=== PATIENT | male | born 1950 | race Caucasian/White ===

== ENCOUNTER 2017-04-03 14:50 | Emergency (ER) | payer BC ==
[~2017-04-03] VITALS: Ht 177.8 cm; Wt 92.1 kg
[2017-04-03 14:52] VITALS: TEMP 36.7; Ht 177.8 cm; Wt 92.1 kg
[2017-04-03] MEDS ORDERED: MoRPHine SULFATE 4 MG/ML 1 ML CARP\\VIAL IV STA (15:05)
[2017-04-03] MEDS ORDERED: XYLOCAINE 1%/SOD BICARB 20 ML VIAL INFIL STA (15:05)
[2017-04-03] MEDS ORDERED: BUPIVACAINE 0.5 % 5 MG/1 ML MPF 30ML VIAL INFIL STA (15:05)
[2017-04-03] MEDS ORDERED: CEFAZOLIN IV 1,000 MG in DEXTROSE 5% 50ML 50 ML IV STA (15:05)
--- NOTE | 2017-04-03 15:11 | EMERGENCY ROOM VISIT NOTE ---
ED Visit Note First contact with patient: 14:58 Chief Complaint: "cut end of left middle finger". History of Present Illness: This patient is a 66 who presents to the Emergency Department female for evaluation of their left third digit laceration. 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 They report a moderate amount of bleeding initially. They deny any numbness or tingling into the distal extremity. They report no decreased range of motion of the affected digit. Patient rates his current discomfort as a 8/10. Patient' s Tetanus status is believed to be currently up-to-date. Medications: as noted below Allergies: none PMH: no pertinent SHx: Patient is retired and lives locally. ROS: All pertinent positive and negative review of systems are appropriately documented in the History of Present Illness. Physical Exam: VITAL SIGNS - Vital signs and nursing notes were reviewed. GENERAL -66 year old male appearing his stated age who is in no acute distress. Communicates well with provider and answers questions appropriately. SKIN -there is complete avulsion of the bone from the DIP distally on the left third digit. The ventral fingerpad region is intact. Large amount of skin is missing. The edges gape apart with traction. No foreign bodies appreciated. There is minimal active bleeding noted. MUSCULOSKELETAL - Laceration as described above. +5/5 strength appreciated of the affected digit. Full range of motion of the affected digit at the PIP, DIP is absent. NEUROLOGIC - Spinothalamic tract was found to be intact with ability to discriminate sharp versus dull sensation. No sensory defects of the dorsal column were appreciated utilizing light touch for evaluation. VASCULAR - Capillary refill was brisk. In the lateral aspects of the intact finger. IMAGING: LEFT MIDDLE FINGER 3 VIEWS HISTORY: Left third digit laceration with bone avulsion COMPARISON: None. FINDINGS: The distal phalanx of the third finger is almost completely absent a small fragment of the base remaining. This is consistent with amputation. The fragment of the distal phalanx base is displaced along the undersurface of the head of the middle phalanx. There is deformity/laceration within the distal middle finger. No radiopaque foreign bodies. 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 There is a large laceration/deformity involving the distal soft tissues of the middle finger. Electronically signed by: Bigg Soni M.D. 04/03/2017 3:53 PM Dictated Date/Time: 04/03/2017 3:50 PM ED Course: Patient was seen and evaluated by myself. Risks and benefits of performing primary wound closure versus no repair were discussed with the patient who verbalizes understanding. Verbal consent was obtained prior to performing the procedure. 4 cc of 50/50 ratio 1% buffered lidocaine was used to perform a digital block of the left third digit. The wound was cleansed and prepped in the typical sterile fashion utilizing normal saline and Betadine. The wound was sterilely draped. Once proper anesthetization was established, the wound was further examined and demonstrated open bone fragment and avulsion. I obtained radiographs with results as above. I consult orthopedics, and spoke with Dr. Calderon, of [facility] [place] at 4:28 PM. We discussed the case, and he recommended Adaptic overlying the region if it could not be tacked back down, AlumaFoam splint, have the patient call the office at 8:30 AM tomorrow morning, and have him nothing by mouth after midnight as well as antibiotics. This was performed. Upon inspection of the wound after thorough irrigation with Betadine and saline, I did have the attending physician, Dr. Brooks also examine the wound. It was apparent that there was a small portion of the nailbed at the distal region which was in tiny pieces. Decision was made to extract/excise this so there is better fit with the skin flap tacked back covering the bone. I spoke with Dr. Calderon again, to verify he was okay with this plan. He agreed. Attention was then turned to that region, and was excised with small scissors. His was only the distal 2 mm of the skin which were not viable. I then gently cleanse the region, thoroughly irrigated the region, and then tacked the skin back in a flap-like nature covering the bone. I reviewed this time is appropriate, and the patient is to follow-up tomorrow in the surgery Center with [facility]. The wound was closed using 7 simple, 5-0 nylon sutures with the wound edges being well approximated. Patient tolerated the procedure well. No complications were met. The wound was cleansed and dressed with a Bacitracin dressing. A metal splint was applied to the finger for comfort. Prescription for oxycodone immediate release as well as Keflex were provided. He was given 1 g of Ancef here as well as morphine for his pain. Patient educated on worrisome symptoms for return visit to the Emergency Department. Patient discharged to home in good condition. In the evaluation and treatment of this patient, the following differential diagnoses were considered: Finger Fracture, Finger Dislocation, Finger Sprain, Finger Contusion, Jersey Finger, or Mallet Finger. Current/Historical Medications Scheduled Cephalexin Monohydrate (Keflex), 500 MG PO QID Scheduled PRN Oxycodone Ir (Roxicodone Ir), 1-2 TAB PO Q4H PRN for Pain Allergies Coded Allergies: No Known Allergies (Unverified , 04/03/17) Vital Signs Date Time Temp Pulse Resp B/P (MAP) Pulse Ox O2 Delivery O2 Flow Rate FiO2 04/03/17 18:07 70 16 169/98 96 04/03/17 16:06 67 16 166/94 94 Room Air 04/03/17 14:52 36.7 80 20 172/82 95 Room Air Medications Administered Medications (Trade) Dose Ordered Sig/Manpreet Route Start Time Stop Time Status Last Admin Dose Admin Morphine Sulfate (MoRPHine SULFATE INJ) 4 mg NOW STAT IV 04/03/17 15:05 04/03/17 15:07 DC 04/03/17 15:15 4 MG Lidocaine HCl (Buffered Lidocaine 1% Inj) 20 ml ONE STAT INFIL 04/03/17 15:05 04/03/17 15:07 DC 04/03/17 15:15 20 ML Bupivacaine HCl (Marcaine 0.5% MPF Inj) 30 ml NOW STAT INFIL 04/03/17 15:05 04/03/17 15:07 DC 04/03/17 15:15 30 ML Cefazolin Sodium 1000 mg/Syringe 5 ml @ 100 mls/hr 1530 ONCE IV 04/03/17 15:30 04/03/17 15:32 DC 04/03/17 15:50 100 MLS/HR Oxycodone HCl (Roxicodone Immediate Rel 5MG Home Pack) 1 homepack UD STAT PO 04/03/17 17:58 04/03/17 17:59 DC 04/03/17 18:06 1 HOMEPACK Cephalexin Monohydrate (Keflex 500MG Home Pack) 1 homepack NOW STAT PO 04/03/17 17:58 04/03/17 17:59 DC 04/03/17 18:06 1 HOMEPACK Departure Information Impression Primary Impression: Laceration Additional Impression: Fingertip avulsion Dispostion Home / Self-Care Condition GOOD Prescriptions Oxycodone Ir (Roxicodone Ir) 5 Mg Tab 1-2 TAB PO Q4H Y for Pain, #20 TAB For Initial Treatment Prov: Mani Darby PA-C 04/03/17 Cephalexin Monohydrate (Keflex) 500 Mg Cap 500 MG PO QID for 7 Days, #28 CAP Prov: Mani Darby PA-C 04/03/17 Referrals No Doctor, Assigned (PCP) Schuyler Calderon D.O. Patient Instructions [facility] Additional Instructions Discharge Instructions: Please call Dr. Calderon's office first thing tomorrow morning at 8:30 AM. Please inform them that he asked for you to be seen in their office that day as you were seen in the emergency department for a amputating a portion of your finger. Oxy IR for pain. No driving while on this. Keflex 500mg every 6 hours for 8 days to help prevent infection. please begin this tomorrow morning You have received 7 sutures on your third left digit. These sutures are NOT dissolvable and WILL need to be removed by a health care provider in 14 days. You can return to the Emergency Department or contact your Primary Care Provider to have the sutures removed. (I recommend allowing the orthopedic surgeon removing these) Please wear the splint for comfort until the sutures are removed. Proper wound care is essential for adequate wound healing and infection prevention. You can shower and clean the wound with soap and water. Do not scour over the wound, pat dry with a towel. Do not submerse the wound (i.e. bathe or dish wash) until the sutures have been removed. You can use an antibiotic ointment with a dressing over the wound for the next 3-4 days. After this time you may leave the wound dry and open to the air. If crust develops over the wound you can use a Q-tip to apply a 1:1 peroxide:water solution to clean the wound. Look for signs of infection of the wound including: increased pain, swelling, foul discharge, streaking, or increased temperature. If any of these are noticed you should return to the Emergency Department for further assessment and treatment. As with any laceration you may have received nerve damage to the surrounding tissues. This damage may or may not be permanent. You should keep the area covered with sunscreen for the first 6 months to 1 year when at risk for exposure to help minimize scarring. You can also use scar reducing creams or Vitamin E oil to help minimize scarring. For pain control, you can use the following [id number] medicine: - Regular strength (325mg/tab) Tylenol (acetaminophen) 2 tabs every 4-6 hours as needed. Do not exceed 12 tablets in a 24 hour period. Avoid taking more than 3 grams (3000 mg) of Tylenol per day. This includes any other sources of acetaminophen you may take on a regular basis. - Regular strength (200 mg/tab) Advil (ibuprofen) 1-2 tabs every 4-6 hours as needed. Do not exceed a dose of 3200 mg per day. Return to the emergency department if your symptoms worsen despite treatment course outlined above. Problem Qualifiers
[2017-04-03] MEDS ORDERED: CEFAZOLIN IV 1,000 MG in SYRINGE 0 ML IV ONE (15:30)
--- NOTE | 2017-04-03 15:54 | DIAGNOSTIC IMAGING REPORT ---
LEFT MIDDLE FINGER 3 VIEWS HISTORY: Left third digit laceration with bone avulsion COMPARISON: None. FINDINGS: The distal phalanx of the third finger is almost completely absent a small fragment of the base remaining. This is consistent with amputation. The fragment of the distal phalanx base is displaced along the undersurface of the head of the middle phalanx. There is deformity/laceration within the distal middle finger. No radiopaque foreign bodies. 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 There is a large laceration/deformity involving the distal soft tissues of the middle finger. Electronically signed by: Bigg Soni M.D. 04/03/2017 3:53 PM Dictated Date/Time: 04/03/2017 3:50 PM
--- NOTE | 2017-04-03 17:02 | EMERGENCY ROOM VISIT NOTE ---
ED Visit Note First contact with patient: 17:01 This Patient was discussed with the physician [employer] Work[employer], Mani Darby PA-C. The pertinent historical and physical exam findings were confirmed. I agree with the studies ordered and with the interpretations of these studies. I agree with the disposition and care plan.
[2017-04-03] MEDS ORDERED: OXYC1TAB3 PO (17:53)
[2017-04-03] MEDS ORDERED: CEPH500C PO (17:53)
[2017-04-03] MEDS ORDERED: OXYCODONE IR HOME PACK PO STA (17:58)
[2017-04-03] MEDS ORDERED: CEPHALEXIN 500MG HOME PACK 1 EA BTL PO STA (17:58)
[2017-04-03 18:07] VITALS: BP 169/98; PULSE 70; O2SAT 96
[2017-04-04] MEDS ORDERED: IBUP-103 PO (17:01)
== END 2017-04-03 18:08 | disposition home or self-care (01) ==
LOC: C.EDB 14:51 → C.EDD 18:08
DX: S61.313A Laceration without foreign body of left middle finger with damage to nail, initial encounter (principal); W45.8XXA Other foreign body or object entering through skin, initial encounter

== ENCOUNTER → 2017-04-05 | Day surgery (SDC) | payer BC ==
[2017-04-04 17:01] VITALS: BMI 27.0
[~2017-04-05] VITALS: Ht 177.8 cm; Wt 86.5 kg
[~2017-04-05] MED LIST: CEFAZOLIN 1000MG IV PUSH 5 ML IV SCH; CEPH500C PO; IBUP-103 PO; LACTATED RINGER'S 1000ML 1,000 ML IV SCH; OXYC1TAB3 PO
--- NOTE | 2017-04-05 00:21 | HISTORY & PHYSICAL EXAMINATION ---
DATE OF ADMISSION: 04/05/2017 SUBJECTIVE AND CHIEF COMPLAINT: Left hand pain. 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 He went to the Emergency Room where x-rays were performed and he was noted to have complete amputation of the distal phalanx as well as partial amputation of the middle phalanx; however, the fingertip pad was kept in place. At that time, the wound was irrigated and it was closed lightly over top of the distal aspect of the finger. He was referred to [facility] where he was evaluated and he is now being set up for revision of the amputation. PAST MEDICAL HISTORY: None. SOCIAL HISTORY: The patient denies alcohol and tobacco use. FAMILY HISTORY: Noncontributory. PAST SURGICAL HISTORY: None. ALLERGIES: None. CURRENT MEDICATIONS: None. OBJECTIVE PHYSICAL EXAMINATION: GENERAL: The patient is alert and oriented x3. He is in no acute distress. He is a well-dressed, well-nourished 66-year-old male whose affect is appropriate. CARDIOVASCULAR: Heart has a regular rhythm and rate without murmurs. LUNGS: Clear to auscultation bilateral. EXTREMITIES: His radial pulse is +2/4 in the left upper extremity. Cap refill is immediate. LYMPHATIC: There is no evidence of any swollen lymph nodes. MUSCULOSKELETAL: Upon inspection of the patient's left hand, he is noted to have partial amputation of the left middle finger. Sutures are intact over the surgical flap. There is tenderness noted at the distal aspect of the finger. Sensation is intact at the distal aspect of the finger. Any range of motion causes pain. Strength testing was not performed. X-RAY EXAMINATION: Multiple views of the left hand demonstrate complete amputation of the distal phalanx of the middle finger, left hand. There is partial amputation of the very distal aspect of the middle phalanx of the middle finger. There is also a bony body at the volar aspect of the most distal aspect of the middle phalanx of third finger. There is soft tissue deformity distally with the most volar aspect still intact. ASSESSMENT AND DIAGNOSES: Partial amputation, traumatic, left middle finger. PLAN: Above assessment was discussed with the patient. At this time, it was recommended the patient undergo a revision of amputation left middle finger. All potential risks, benefits, complications, alternatives and rehab have been discussed with the patient, and at this time, he wishes to proceed with the surgery as indicated and will be scheduled for the surgery on 04/05/2017.
[2017-04-05 14:24] VITALS: BP_SYST 76; PULSE 64; TEMP 36.7; O2SAT 96; Ht 177.8 cm; Wt 86.5 kg
[2017-04-05 14:35] LABS: HEMATOCRIT 47.1 % (42-52); MEAN CELL VOLUME 86.3 fL (80-100); MEAN CORPUSCULAR HEMOGLOBIN 29.1 pg (25-34); MEAN PLATELET VOLUME 9.3 fL (7.4-10.4); PLATELET COUNT 236 K/uL (130-400); RED BLOOD COUNT 5.46 M/uL (4.7-6.1); WHITE BLOOD COUNT 6.26 K/uL (4.8-10.8)
[2017-04-05 14:39] LABS: MEAN CORPUSCULAR HGB CONC 33.8 g/dl (32-36)
--- NOTE | 2017-04-05 18:26 | History & Physical Bridge Note ---
H&P Re-Evaluation Bridge Note: I have examined the patient, reviewed the History & Physical and in the interval since the performance of the History & Physical I have noted the following changes of clinical significance: Case cancelled. More urgent surgical cases will not allow for this patient to be cared for today as an add- on. Will make other arrangements for his care.
== END | disposition home or self-care (01) ==
LOC: C.OR 14:00
PROVIDERS: ATTEND Orthopaedic Surgery Sports Medicine
DX: M79.642 Pain in left hand (principal)

== ENCOUNTER 2024-04-22 16:41 | Observation (INO) ==
[2024-04-22] MEDS: OPTIRAY 320 125ml IV ONE (17:08)
--- NOTE | 2024-04-22 17:12 | Emergency Department Note ---
Impression & Plan Stroke-like symptoms, Elevated blood pressure reading ED Provider Note NAME: AGATHA HERNANDEZ AGE: 73 SEX: M : 1950 ARRIVES VIA: Walk-In INFORMANT: Patient, family at the bedside ED PROVIDER(S): Hema Helms MD CHIEF COMPLAINT: Headache, left-sided numbness MEDICAL DECISION MAKING: Patient presents due to concern for left-sided numbness and headache. IV was established and blood work was obtained. Code stroke was initiated but from return of the CAT scan the patient had resolution of symptoms. Patient with a nonfocal neurologic exam. I did speak with the radiologist reading the report is reported that the patient does have moderate stenosis of the right MCA.Patient's blood work shows a normal white count H&H and platelet count. The patient's kidney function is unremarkable. Patient CT head negative. Patient's CTA of the head does show multifocal stenoses of the right MCA M1 segment moderate in severity. Also moderate stenosis of the proximal right cervical ICA just distal to the carotid bifurcation secondary to atherosclerosis. Patient asymptomatic and thus did not speak with telestroke as the stenosis is not reported as greater than moderate i.e. severe. I did inform the patient of the findings. The patient was ordered full dose aspirin and 80 mg of atorvastatin. I did speak with the on-call hospitalist service and the patient was admitted by [facility]. Critical Care: I have personally spent 35 minutes of critical care time in direct management of this patient. This includes bedside care, interpretation of diagnostic studies, and testing, discussion with consultants, patient, and family members, and other require inpatient management activities. This 35 minutes is in excess of all separately billable procedures. Discussion w/ other healthcare providers: Dr. Herndon with radiology JORGE ALBERTO Dangelo Dr. inpatient medicine service Prior /Outside records reviewed: none Differential diagnosis: Infection, dehydration, metabolic abnormality, hypo/hyperglycemia, electrolyte imbalance, anemia, UTI, pneumonia, thyroid dysfunction among others were considered. Diagnostics, as interpreted by me: ECG: Normal sinus rhythm, rate of 80, normal intervals, left axis deviation, Q waves noted anteriorly. No ST elevations. Cardiac monitoring: An order was placed for continuous cardiac monitoring. The monitor shows a rate of 82 with sinus rhythm. Patient was placed on pulse oximetry Medical decision rules: None Imaging studies: I informally interpreted the patient's CT head does not show obvious ICH with formal report to follow. HPI: Patient presents due to concern for headache and left-sided numbness. The patient reportedly began having the symptoms while seated at a table around 3:45 PM. Patient did have some associated headache at that time. No falls or trauma. Patient was laying some brick outside earlier today. Patient states that he was drinking enough water. Patient states that he did have a headache prior to the symptoms. Patient denies any blood thinner use no LOC. The patient denies any focal weakness. Patient does not take any chronic medications. He denies any alcohol tobacco or drug use. Patient denies any slurred speech or facial droop. PAST MEDICAL HISTORY: See Below PAST SURGICAL HISTORY: See Below SOCIAL HISTORY: See Below HOME MEDICATIONS: See Below ALLERGIES: See Below VITALS: See Below PHYSICAL EXAMINATION: GENERAL: NAD, non-toxic. EYE EXAM: Normal conjunctiva. PERRL, no anisocoria and EOM's grossly intact w/o pain. OROPHARYNX: Moist mucus membranes, grossly normal dentition. NECK: Trachea midline, no stridor. Supple, no nuchal rigidity, no adenopathy, non-tender. No signs of meningismus. FROM of the neck with good chin to chest and neck extension. LUNGS: Clear to auscultation. Normal chest wall mechanics. HEART: NSR, no MRG. ABDOMEN: Abdomen soft, non-tender, no masses, no rebound or guarding. BACK: No CVA TTP. SKIN: No rashes and no bruising. UPPER EXTREMITIES: Upper extremities are grossly normal. LOWER EXTREMITIES: Grossly normal, no edema. NEURO EXAM: A&O x3, cranial nerves II-XII grossly intact, normal speech, moves all 4 extremities. Good ibynal-ta-yesx, no drift and no sensory deficits. Past Med/Surg History Problem List (Updated 04/22/24 @ 22:11 by Hema Helms MD) Tick bite Elevated blood pressure reading (Acute) Stroke-like symptoms (Acute) Surgical History History of shoulder surgery History of carpal tunnel surgery Family History Father Hypertension Mother Hypertension Social History Smoking Status: Never smoker Hx Alcohol Use: Yes Alcohol type: beer Alcohol Intake Frequency: Monthly or Less Hx Substance Use: No Feels Safe at Home: Yes Allergies Allergies Allergy/AdvReac Type Severity Reaction Status Date / Time No Known Allergies Allergy Unverified 04/04/17 16:59 Home Meds Home Medications Medication Instructions Recorded Confirmed No Known Home Medications 04/22/24 04/22/24 Results & Data (ED) Vital Signs Vital Signs - 24 hr 04/22/24 16:50 04/22/24 17:01 04/22/24 17:21 Temperature 36.4 C L Temperature Source Temporal Artery Scan Pulse Rate 74 77 Pulse Rate [Apical] 85 Respiratory Rate 20 23 Respiratory Effort / Characteristics Non-Labored Respiratory Depth Normal Blood Pressure 195/94 H Blood Pressure [Right Arm] 188/106 H Blood Pressure Mean 127 Blood Pressure Mean [Right Arm] 133 Blood Pressure Position Sitting Blood Pressure Position [Right Arm] Pulse Oximetry 100 96 Oxygen Delivery Method Room Air Room Air Sepsis Recent Fever Within 48 Hours No Sepsis New/Unexplained Change in Mental Status N/A Sepsis Action Taken by Nursing No Action Required 04/22/24 17:30 04/22/24 18:00 04/22/24 18:31 Temperature Temperature Source Pulse Rate 81 Pulse Rate [Apical] 62 57 L Respiratory Rate 17 16 16 Respiratory Effort / Characteristics Non-Labored Spontaneous Non-Labored Spontaneous Respiratory Depth Normal Normal Blood Pressure 167/100 H Blood Pressure [Right Arm] 152/86 H 150/81 H Blood Pressure Mean 122 Blood Pressure Mean [Right Arm] 108 104 Blood Pressure Position Blood Pressure Position [Right Arm] Sitting Pulse Oximetry 96 95 96 Oxygen Delivery Method Room Air Room Air Room Air Sepsis Recent Fever Within 48 Hours Sepsis New/Unexplained Change in Mental Status Sepsis Action Taken by Snf Medications Current Medication List: was personally reviewed by me Laboratory Data Attestation: I reviewed the patient's lab results. 04/22/24 17:03 04/22/24 17:03 Lab Results 04/22/24 04/22/24 04/22/24 Range/Units 17:03 17:04 17:06 WBC 7.92 (4.8-10.8) K/ul RBC 5.54 (4.70-6.10) M/uL Hgb 15.5 (14.0-18.0) g/dl POC Hgb 16.7 (14.0-18.0) g/dl Hct 46.7 (42.0-52.0) % POC Hct 49 (42-52) % MCV 84.3 (80.0-100.0) fL MCH 28.0 (25.0-34.0) pg MCHC 33.2 (32.0-36.0) g/dL RDW Std Deviation 41.9 (36.4-46.3) fL RDW Coeff of Miguel A 13.5 (11.5-14.5) % Plt Count 314 (130-400) K/uL MPV 9.4 (9.4-12.4) fL Immature Gran % (Auto) 0.4 % Neut % (Auto) 66.4 % Lymph % (Auto) 20.3 % [place] % (Auto) 10.5 % Eos % (Auto) 1.9 % Baso % (Auto) 0.5 % Neut # (Auto) 5.26 (1.40-6.50) K/uL Lymph # (Auto) 1.61 (1.20-3.40) K/uL [place] # (Auto) 0.83 H (0.11-0.59) K/uL Eos # (Auto) 0.15 (0.00-0.50) K/uL Baso # (Auto) 0.04 (0.00-0.20) K/uL Immature Gran # (Auto) 0.03 (0.01-0.20) K/uL PT 10.5 (9.0-12.0) Seconds INR 1.0 (0.9-1.1) APTT 29 (21-31) Seconds PTT Ratio 1.1 POC Sodium 139 (135-144) mmol/L Sodium 137 (136-145) mmol/L POC Potassium 3.9 (3.3-5.0) mmol/L Potassium 4.0 (3.5-5.1) mmol/L POC Chloride 100 L (101-112) mmol/L Chloride 102 (98-107) mmol/L Carbon Dioxide 27 (21-32) mmol/L POC Total CO2 25 (24-31) mmol/L Anion Gap 8 (3-11) POC Anion Gap 19.0 (16-25) mmol/L POC BUN 17 (7-18) mg/dl BUN 17 (6-23) mg/dl Creatinine 0.99 (0.6-1.4) mg/dl POC Creatinine 1.0 (0.6-1.3) mg/dl Est Cr Clr Drug Dosing 75.1 ml/min eGFR 79.94 BUN/Creatinine Ratio 17.2 (10-20) Glucose 112 H (70-99(Fasting)) mg/dl POC Glucose (other) 114 H (70-99) mg/dl Calcium 9.8 (8.6-10.3) mg/dl POC Ioniz Calcium Maik 1.24 (1.12-1.32) mmol/l Magnesium 2.1 (1.7-2.4) mg/dl Total Bilirubin 0.4 (0.2-1.0) mg/dl AST 34 (13-39) U/L ALT 37 (7-52) U/L Alkaline Phosphatase 66 (34-104) U/L Troponin I High Sens 16.2 (0-20) pg/ml Total Protein 7.4 (6.0-8.3) gm/dl Albumin 4.6 (3.4-5.0) gm/dl Globulin 2.8 (2.5-4.0) gm/dl Albumin/Globulin Ratio 1.6 (0.9-2) Anaplasma Smear See Comment Babesia Smear See Comment Lyme Disease Screen Negative (Negative) Administered Medications Discontinued Medications Aspirin (Aspirin Chew 324 Mg) 324 mg PO NOW STA Stop: 04/22/24 18:51 Last Admin: 04/22/24 19:24 Dose: 324 mg Documented By: Atorvastatin Calcium (Atorvastatin 40 Mg Tab) 80 mg PO NOW STA Stop: 04/22/24 18:51 Last Admin: 04/22/24 19:23 Dose: 80 mg Documented By: Ioversol (Optiray 320 125ml) 116 ml IV ONCE ONE Stop: 04/22/24 17:08 Last Admin: 04/22/24 17:08 Dose: 116 ml Documented By: BOLA Imaging Data Radiologist's Impression: Head CT 04/22/24 16:59 CT HEAD: HISTORY: Stroke TECHNIQUE: Noncontrast CT examination of the head is performed. Coronal and sagittal reformats were created. COMPARISON: None FINDINGS: There is no evidence of intracranial hemorrhage, focal mass effect or midline shift. No fluid collection is identified. The ventricular system is midline and symmetric. No evidence of acute major vascular territory infarction. Chronic white matter ischemic changes No calvarial fracture is identified. The paranasal sinuses and mastoids are well aerated. IMPRESSION: No acute intracranial process identified. Electronically signed by Devaughn Eisenberg 04-22-2024 5:40 PM Head CTA 04/22/24 16:59 HISTORY: Stroke TECHNIQUE: CT angiography of the head and the neck was performed. Coronal and sagittal reformats were created. IV CONTRAST: 100 mL of OMNIPAQUE 300 COMPARISON: FINDINGS: CTA HEAD: Stenotic/occlusive disease: Multifocal stenoses of the right MCA M1 segment, moderate in severity. Aneurysm: None Vascular malformation: None CTA NECK: Right carotid: Moderate stenosis of the proximal right cervical ICA just distal to the carotid bifurcation secondary to atherosclerosis Left carotid: No hemodynamically significant stenosis. Vertebrobasilar system: No hemodynamically significant stenosis. Aortic arch and subclavian arteries: No hemodynamically significant stenosis. Nonvascular structures: Unremarkable. Stenosis ranges are derived using NASCET criteria. IMPRESSION: No large vessel occlusion. 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 Moderate stenosis of the proximal right cervical ICA just distal to the carotid bifurcation secondary to atherosclerosis Notification to clinician of alert: Provider Scooter was notified about above findings by phone on April 22, 2024 at 5:31 PM by Devaughn Eisenberg MD. ACT 112: Positive. There are findings on this exam that require communication between the performing entity and the patient following Patient Test Result Information Act ([place] ACT 112) guidelines Electronically signed by Devaughn Eisenberg 04-22-2024 5:40 PM Neck CTA 04/22/24 16:59 HISTORY: Stroke TECHNIQUE: CT angiography of the head and the neck was performed. Coronal and sagittal reformats were created. IV CONTRAST: 100 mL of OMNIPAQUE 300 COMPARISON: FINDINGS: CTA HEAD: Stenotic/occlusive disease: Multifocal stenoses of the right MCA M1 segment, moderate in severity. Aneurysm: None Vascular malformation: None CTA NECK: Right carotid: Moderate stenosis of the proximal right cervical ICA just distal to the carotid bifurcation secondary to atherosclerosis Left carotid: No hemodynamically significant stenosis. Vertebrobasilar system: No hemodynamically significant stenosis. Aortic arch and subclavian arteries: No hemodynamically significant stenosis. Nonvascular structures: Unremarkable. Stenosis ranges are derived using NASCET criteria. IMPRESSION: No large vessel occlusion. 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 Moderate stenosis of the proximal right cervical ICA just distal to the carotid bifurcation secondary to atherosclerosis Notification to clinician of alert: Provider Scooter was notified about above findings by phone on April 22, 2024 at 5:31 PM by Devaughn Eisenberg MD. ACT 112: Positive. There are findings on this exam that require communication between the performing entity and the patient following Patient Test Result Information Act ([place] ACT 112) guidelines Electronically signed by Devaughn Eisenberg 04-22-2024 5:40 PM Discharge Plan Visit Data Chief Complaint: Headache Stated Complaint: LEFT SIDE NUMBNESS, NECK PAIN, HEADACHE. ED Provider: Hema Helms Discharge Problem: Stroke-like symptoms, Elevated blood pressure reading Patient Disposition: Admitted As Inpatient Discharge Instructions Interventions: ED Discharge Assessment Last Done: 04/22/24 21:01
[2024-04-22 17:16] LABS: Basophils # (auto) 0.04 K/uL (0.00-0.20); Basophils % (auto) 0.5 %; Eosinophils # (auto) 0.15 K/uL (0.00-0.50); Eosinophils % (auto) 1.9 %; Hematocrit (blood only) 46.7 % (42.0-52.0); Hemoglobin 15.5 g/dl (14.0-18.0); Immature Granulocytes # (auto) 0.03 K/uL (0.01-0.20); Immature Granulocytes % (auto) 0.4 %; Lymphocytes # (auto) 1.61 K/uL (1.20-3.40); Lymphocytes % (auto) 20.3 %; Mean Corpuscular Hgb Conc 33.2 g/dL (32.0-36.0); Mean Corpuscular Volume 84.3 fL (80.0-100.0); Mean Platelet Volume 9.4 fL (9.4-12.4); Monocytes # (auto) 0.83 K/uL (0.11-0.59); Monocytes % (auto) 10.5 %; Neutrophils # (auto) 5.26 K/uL (1.40-6.50); Neutrophils % (auto) 66.4 %; Platelet Count 314 K/uL (130-400); RDW Coefficient of Variation 13.5 % (11.5-14.5); RDW Standard Deviation 41.9 fL (36.4-46.3); Red Blood Count 5.54 M/uL (4.70-6.10); White Blood Count 7.92 K/ul (4.8-10.8)
[2024-04-22 17:18] LABS: iSTAT Hemoglobin 16.7 g/dl (14.0-18.0); iSTAT Ionized Calcium 1.24 mmol/l (1.12-1.32); iSTAT Potassium 3.9 mmol/L (3.3-5.0)
[2024-04-22 17:42] LABS: Albumin Globulin Ratio 1.6 (0.9-2); Albumin Level 4.6 gm/dl (3.4-5.0); BUN Creatinine Ratio 17.2 (10-20); Bilirubin,Total 0.4 mg/dl (0.2-1.0); Calcium 9.8 mg/dl (8.6-10.3); Creatinine Clr Calc Pharmacy 75.1 ml/min; Globulin 2.8 gm/dl (2.5-4.0); Magnesium 2.1 mg/dl (1.7-2.4); Total Protein 7.4 gm/dl (6.0-8.3)
[2024-04-22 17:45] LABS: Partial Thromboplastin Ratio 1.1; Partial Thromboplastin Time 29 Seconds (21-31); Prothrombin Time 10.5 Seconds (9.0-12.0)
[2024-04-22 17:47] LABS: Troponin I High Sensitivity 16.2 pg/ml (0-20)
[2024-04-22] MEDS ORDERED: POLYETHYLENE (MIRALAX) 17 GM PACK PO PRN (19:11)
[2024-04-22] MEDS ORDERED: ACETAMINOPHEN 325 MG TAB PO PRN (19:11)
[2024-04-22] MEDS ORDERED: ONDANSETRON INJ 2 MG/ML 2 ML VIAL IV PRN (19:11)
[2024-04-22] MEDS ORDERED: PHARMACIST DISCHARGE MED REC CONSULT PRN (19:14)
--- NOTE | 2024-04-22 19:22 | History & Physical Report ---
Date of Service April 22, 2024 Assessment & Plan (1) Stroke-like symptoms: (2) Elevated blood pressure reading: (3) Tick bite: Plan: Patient is 73 year old male with no known prior diagnoses, does not follow-up with PCP and does not take any medications presented to ER today with complaint of left facial numbness, left arm and leg numbness that started approximately 3:45pm today. Symptoms resolved during ER course. Reports last tick bite 2 weeks ago. In ER Patient afebrile, P: 74, BP 195/94, R: 20 pulse ox 100% on room air. Labs grossly unremarkable Repeat vitals with P: 58, BP 169/88 CT head report: No acute intracranial process identified CTA head and neck report: Right carotid: Moderate stenosis of the proximal right cervical ICA just distal to the carotid bifurcation secondary to atherosclerosis Left carotid: No hemodynamically significant stenosis Vertebral basilar system: No hemodynamically significant stenosis Aortic arch and subclavian arteries: No hemodynamically significant stenosis Nonvascular structures: Unremarkable In ER given aspirin 324mg and atorvastatin 80mg po Patient had resolution of left facial, left arm and left leg numbness during ER course and currently is asymptomatic DDx: TIA, CVA, Hypertensive urgency/emergency, Lyme Disease Lyme screen pending. Will start empiric Rocephin. Tele to monitor for arrhythmias Lipid panel, A1C, TSH, CBC, BMP in am MRI brain Echo with bubble study Fall, aspiration precautions PT/OT consult Start aspirin, atorvastatin Allow permissive HTN in 1st 24 hrs. Patient may have undiagnosed HTN Neurology consult DVT Prophylaxis SCD Admit telemetry Full Code as per discussion with pt Does not follows with a PCP for routine care Pt was seen and care coordinated with Dr Hunt. See addendum I spent a total of 75 minutes reviewing notes, outpatient records, labs, medication, coordinating, documenting and providing care for this patient excluding time spent in the performance of separately billed services. History of Present Illness Chief Complaint: Left sided numbness Primary Care Provider: NO PCP Patient is 73 year old male with no known prior diagnoses, does not follow-up with PCP and does not take any medications presented to ER today with complaint of left facial numbness, left arm and leg numbness that started approximately 3:45pm today. States prior was in normal state of health and was working with bricks to build a fireplace. Denies headache today. Denies any vision changes, extremity weakness, speech changes. Upon arrival to ER symptoms completely resolved. States yesterday had mild headache that self resolved. Reports typically does not get headaches. Reports recurrent tick bites with most recent tick bite approximately 2 weeks ago to right posterior leg. Thinks may have been attached for a day. Removed with soap and swab. Has not noticed any rashes. Has chronic bilateral shoulder pain but denies any changes. Denies fever/chills, diaphoresis, N/V/D/C, dizziness, syncope, vision changes, neck pain, CP, SOB, orthopnea, palpitations, cough, sore throat, rhinorrhea, abdominal pain, extremity weakness, extremity edema, rashes, urinary symptoms. Allergies Allergy/AdvReac Type Severity Reaction Status Date / Time No Known Allergies Allergy Unverified 04/04/17 16:59 Home Medications Medication Instructions Recorded Confirmed Type No Known Home Medications 04/22/24 04/22/24 History Past Med/Surg History Problem List Tick bite Elevated blood pressure reading Stroke-like symptoms Surgical History History of shoulder surgery History of carpal tunnel surgery Family History Father Hypertension Mother Hypertension Social History Smoking Status: Never smoker Hx Alcohol Use: Yes Alcohol type: beer Alcohol Intake Frequency: Monthly or Less Hx Substance Use: No Feels Safe at Home: Yes Review of Systems Review of Systems: All systems reviewed & are unremarkable except as noted in HPI & below Physical Exam Physical Exam: General: no distress, WDWN Head: normocephalic, atraumatic Eyes: PERRL, EOM's intact, no nystagmus, conjunctiva non-injected, anicteric ENT: normal inspection external ears, nose, mucous membranes moist Neck: supple, trachea midline, non-tender Lungs: clear, no respiratory distress, no wheezing/rhonchi/rales CV: RRR, no murmur, no JVD, no pretibial edema Abd: normal BS, soft, non-tender Ext: no cyanosis, no calf tenderness, LUE: +kelsey deformity Neuro: A&O x 3, normal affect. Facial sensation is intact and symmetric, face is strong and symmetric, hearing grossly intact, soft palate elevates symmetrically, no dysarthria, shoulder shrug intact, tongue is midline, normal movement, no fasciculations, strength 5/5 throughout bilateral upper and lower extremities, finger to nose intact, rapid alternating movements intact Skin: warm, dry Results & Data Results & Data Vital Signs (Past 12 Hours) Vital Signs Temp Pulse Pulse Resp BP BP Pulse Ox 04/22/24 18:31 57 L 16 150/81 H 96 04/22/24 18:00 62 16 152/86 H 95 04/22/24 17:30 81 17 167/100 H 96 04/22/24 17:21 85 23 188/106 H 96 04/22/24 17:01 77 04/22/24 16:50 36.4 C L 74 20 195/94 H 100 O2 Del Method 04/22/24 18:31 Room Air 04/22/24 18:00 Room Air 04/22/24 17:30 Room Air 04/22/24 17:21 Room Air 04/22/24 17:01 04/22/24 16:50 Room Air Laboratory Results Short CBC 04/22/24 Range/Units 17:03 WBC 7.92 (4.8-10.8) K/ul Hgb 15.5 (14.0-18.0) g/dl Hct 46.7 (42.0-52.0) % Plt Count 314 (130-400) K/uL BMP 04/22/24 17:03 Sodium 137 Potassium 4.0 Chloride 102 Carbon Dioxide 27 BUN 17 Creatinine 0.99 Glucose 112 H Calcium 9.8 Liver Function 04/22/24 Range/Units 17:03 Total Bilirubin 0.4 (0.2-1.0) mg/dl AST 34 (13-39) U/L ALT 37 (7-52) U/L Alkaline Phosphatase 66 (34-104) U/L Albumin 4.6 (3.4-5.0) gm/dl Code Status & VTE Plan VTE Prophylaxis Plan VTE Prophylaxis will be ordered: Yes Supervising Physician Co-Signing Physician Notes Patient is a 73-year-old male with no significant past medical history presents with sudden onset of left-sided facial, upper and lower extremity numbness this afternoon. He denies any focal weakness, chest pain, dyspnea, dysarthria, facial deformity, bowel or bladder incontinence. He states having transient headache yesterday which resolved. Currently numbness resolved as well. He admits to have a tick bite about 2 weeks ago which was untreated. Please review HPI for complete details of presentation. I personally reviewed blood work and imaging studies. Lyme screen currently pending. He was noted to be hypotensive while in ED but asymptomatic. Official imaging studies read currently pending. Was thought to have moderate stenosis of the proximal right cervical internal carotid artery just distal to the carotid bifurcation secondary to atherosclerosis. MRI brain currently pending. Physical Exam: Vitals signs as noted above General Appearance:Moderately built and nourished, no apparent distress Head: normocephalic, Atraumatic Eyes: normal inspection, EOMI Neck: supple, Trachea midline Respiratory/Chest: Normal breath sounds, CTA, No accessory muscle use Cardiovascular: S1, S2, No murmur Abdomen/GI:Soft, Non tender, Bowel sounds present Extremities/Musculoskeletal:normal inspection, no edema Neurologic/Psych:AAOX3, grossly no focal neurological deficits Skin: normal color, warm Strokelike symptoms Rule out CVA Also plan to rule out Lyme's disease Follow-up imaging studies Start on aspirin, Lipitor for now Also will give IV Rocephin Neurology consulted I will have permissive hypertension Check resting echo, lipid panel, A1c Also check TSH, B12 levels Speech, PT OT Further management based on pending workup I personally interviewed and examined at bedside. Patient's care is coordinated with Wendy Alba PA-C. I have reviewed the advanced practitioner's documentation, and I agree with plan of care. Please refer to the documentation above for details of patient's presentation and for discussion of other issues. I spent a total [id number] coordinating, documenting, and providing care for this patient excluding time spent in the performance of separately billed services.
[2024-04-22] MEDS: ATORVASTATIN 40 MG TAB PO STA (19:23)
[2024-04-22] MEDS: ASPIRIN CHEW 324 MG PO STA (19:24)
--- NOTE | 2024-04-22 21:07 | CT Scan Report ---
CT HEAD: HISTORY: Stroke TECHNIQUE: Noncontrast CT examination of the head is performed. Coronal and sagittal reformats were created. COMPARISON: None FINDINGS: There is no evidence of intracranial hemorrhage, focal mass effect or midline shift. No fluid collection is identified. The ventricular system is midline and symmetric. No evidence of acute major vascular territory infarction. Chronic white matter ischemic changes No calvarial fracture is identified. The paranasal sinuses and mastoids are well aerated. IMPRESSION: No acute intracranial process identified. Electronically signed by Devaughn Eisenberg 04-22-2024 5:40 PM
--- NOTE | 2024-04-22 21:07 | CT Scan Report ---
HISTORY: Stroke TECHNIQUE: CT angiography of the head and the neck was performed. Coronal and sagittal reformats were created. IV CONTRAST: 100 mL of OMNIPAQUE 300 COMPARISON: FINDINGS: CTA HEAD: Stenotic/occlusive disease: Multifocal stenoses of the right MCA M1 segment, moderate in severity. Aneurysm: None Vascular malformation: None CTA NECK: Right carotid: Moderate stenosis of the proximal right cervical ICA just distal to the carotid bifurcation secondary to atherosclerosis Left carotid: No hemodynamically significant stenosis. Vertebrobasilar system: No hemodynamically significant stenosis. Aortic arch and subclavian arteries: No hemodynamically significant stenosis. Nonvascular structures: Unremarkable. Stenosis ranges are derived using NASCET criteria. IMPRESSION: No large vessel occlusion. 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 Moderate stenosis of the proximal right cervical ICA just distal to the carotid bifurcation secondary to atherosclerosis Notification to clinician of alert: Provider Scooter was notified about above findings by phone on April 22, 2024 at 5:31 PM by Devaughn Eisenberg MD. ACT 112: Positive. There are findings on this exam that require communication between the performing entity and the patient following Patient Test Result Information Act ([place] ACT 112) guidelines Electronically signed by Devaughn Eisenberg 04-22-2024 5:40 PM
--- NOTE | 2024-04-22 22:04 | XRay Report ---
Exam(s): XR ORBITS EXAM: XR Orbits, 4 or More Views CLINICAL HISTORY: Reason for exam: Metal. TECHNIQUE: Frontal, lateral and oblique views of the orbits. COMPARISON: No relevant prior studies available. FINDINGS: Bones/joints: Unremarkable. No acute fracture. Sinuses: Unremarkable. No air-fluid levels. Soft tissues: Referred body seen in the orbits. No radiopaque foreign body. Dental: Bilateral maxillary dental hardware is seen. IMPRESSION: No radiopaque foreign body in the orbits Electronically signed by: Israel Kilgore MD 04/22/24 22:03 PM
[2024-04-22] MEDS: cefTRIAXone SODIUM 2,000 MG/50 ML BAG IV SCH (22:27)
[2024-04-22 22:45] VITALS: RESP 18
[2024-04-23] MEDS: GADOBUTROL 65ML VIAL IV ONE (00:17)
--- NOTE | 2024-04-23 01:41 | Magnetic Resonance Report ---
EXAM: MR brain wo/w con CLINICAL HISTORY: left sided numbness and headache earlier in the day on 04/22. resolved now. r/o stroke. CT head 04/22/24. No previous MRI here. injected 9cc gadavist through existing iv lt arm uneventful at 0015. images 258. INPATIENT TECHNIQUE: Multisequential and multiplanar images of the brain were submitted for review without and with contrast. COMPARISON: None. FINDINGS: The brain shows normal morphology, signal intensity, and volume for age. No focal parenchymal lesions are seen. No pathological enhancement is noted on the postcontrast sequences. No intracranial hemorrhage, mass effect, midline shift, extra-axial collection, or hydrocephalus is identified. Ventricles, sulci, and basal cisterns are symmetric and normal in size and configuration. Diffusion-weighted sequences show no evidence of acute ischemic infarction. Midline structures including the pituitary gland, corpus callosum, pineal region, and brainstem are unremarkable. The craniovertebral junction is within normal limits. No calvarial abnormalities are identified. The paranasal sinuses and mastoid air cells are clear. Orbital structures are unremarkable. Appropriate flow voids are present in the visualized intracranial vessels. IMPRESSION: 1. No acute intracranial pathology, space occupying mass, or pathological enhancement is demonstrated. Electronically signed by Esau Noriega 04-23-2024 01:38 AM
[2024-04-23] MEDS ORDERED: ATROPINE SULFATE 0.1 MG/ML 10ML SYR IV PRN (02:25)
[2024-04-23 03:28] LABS: Thyroid Stimulating Hormone 3.345 uIu/ml (0.300-4.500)
[2024-04-23 07:20] VITALS: O2SAT 94
[2024-04-23 07:57] LABS: Basophils # (auto) 0.04 K/uL (0.00-0.20); Basophils % (auto) 0.7 %; Eosinophils # (auto) 0.14 K/uL (0.00-0.50); Eosinophils % (auto) 2.4 %; Hematocrit (blood only) 46.9 % (42.0-52.0); Hemoglobin 15.3 g/dl (14.0-18.0); Immature Granulocytes # (auto) 0.01 K/uL (0.01-0.20); Immature Granulocytes % (auto) 0.2 %; Lymphocytes # (auto) 1.32 K/uL (1.20-3.40); Mean Corpuscular Hgb Conc 32.6 g/dL (32.0-36.0); Mean Corpuscular Volume 85.9 fL (80.0-100.0); Mean Platelet Volume 9.6 fL (9.4-12.4); Monocytes # (auto) 0.68 K/uL (0.11-0.59); Monocytes % (auto) 11.8 %; Neutrophils # (auto) 3.55 K/uL (1.40-6.50); Neutrophils % (auto) 61.9 %; Platelet Count 286 K/uL (130-400); RDW Coefficient of Variation 13.8 % (11.5-14.5); RDW Standard Deviation 43.5 fL (36.4-46.3); Red Blood Count 5.46 M/uL (4.70-6.10); White Blood Count 5.74 K/ul (4.8-10.8)
[2024-04-23 08:14] LABS: Estimated Average Glucose 123 mg/dl; Hemoglobin A1C 5.9 % (4.5-5.6)
[2024-04-23 08:15] LABS: BUN Creatinine Ratio 16.1 (10-20); Calcium 9.4 mg/dl (8.6-10.3); Chol HDL Ratio 5.5 (0-5); Creatinine Clr Calc Pharmacy 84.4 ml/min
[2024-04-23] MEDS: ATORVASTATIN 40 MG TAB PO SCH (08:28)
[2024-04-23] MEDS: ASPIRIN 81 MG ECTAB PO SCH (08:28)
--- NOTE | 2024-04-23 10:22 | Electrocardiogram Report ---
Test Reason : Blood Pressure : */* mmHG Vent. Rate : 80 BPM Atrial Rate : 80 BPM P-R Int : 174 ms QRS Dur : 92 ms QT Int : 368 ms P-R-T Axes : 31 -31 26 degrees QTcB Int : 424 ms Normal sinus rhythm Left axis deviation Septal infarct , age undetermined Abnormal ECG When compared with ECG of 27-Feb-2018 10:26, Vent. rate has increased by 26 bpm Septal infarct is now Present Confirmed by Ian Luna ([id number]) on 04/23/2024 10:22:15 AM Referred By: NO PCP Confirmed By: Ian Luna
[2024-04-23 11:07] VITALS: BP 158/89; PULSE 57; TEMP 97.9
[2024-04-23] MEDS: CYANOCOBALAMIN (B-12) 500 MCG TABLET PO SCH (11:16)
--- NOTE | 2024-04-23 12:10 | Neurology Consultation ---
Date of Consultation April 23, 2024 Assessment & Plan (1) Left sided numbness: Differential diagnosis includes TIA versus hypertensive encephalopathy. CTA of the head and neck shows areas of stenosis within the right M1 segment of the MCA, concerning for potential etiology. MRI is negative for any acute ischemia. Echocardiogram is pending. Tick panel is negative so far Plan Recommend aspirin 81 mg, Plavix 75 mg, atorvastatin 80 mg for 3 months to be followed by single antiplatelet. Follow-up echocardiogram and telemetry. Follow-up follow-up final tickborne panel. Risk factor modifications include strict control of his blood pressure, glucose intolerance noted hemoglobin A1c is 5.6. Continue with atorvastatin 80 mg, this could be adjusted after the 3 months. Follow-up with neurology as an outpatient Telehealth Consultation Telehealth Information Telehealth Information: I performed this visit using a real-time telehealth connection between my l ocation and the patients location ([facility]). After connecting through interactive tele-video, patient was identified by name and date of and/or wristband check.Patient (or authorized healthcare compliance representative dealer) was informed that this was a telemedicine visit and it was being conducted confidentially over secure lines. My office door was closed and no one else was present in the room with me.Patient (or authorized healthcare compliance representative dealer) provided consent to proceed with the visit, expressed an understanding of privacy and security of the telemedicine visit, and gave permission to have a hospital compliance representative dealer in the room in order to assist with the visit and to conduct portions of the visit, as needed. I informed the patient (or authorized healthcare compliance representative dealer) that I reviewed their record and presented the opportunity for them to ask any questions regarding the visit today. The patient agreed to participate. History of Present Illness Reason for Consultation: left sided numbness Requesting Physician: Abram Main MD Attending Physician: Abram Main MD History of Present Illness 73-year-old male patient with PMH of HTN, and glucose intolerance not been on any medications and does not follow with any doctors, denies any drug or alcohol use. The patient presented to the hospital yesterday reporting numbness that affected the left face arm and leg that lasted for about an hour and improved by the time he presented to the emergency room. He denies any associated weakness or numbness, denies any blurry vision any slurred speech, he denies any difficulty with gait or walking. Symptoms lasted for about an hour or more so this is why he presented to the ED. Upon ED presentation his blood pressure was significantly elevated 188/106, 195/94. His symptoms improved in the ED. CTA of the head and neck was done and showed multifocal stenosis of the right MCA M1 segment, moderate in severity, also moderate stenosis of the proximal cervical ICA distal to the carotid bifurcation. His MRI is negative for any acute ischemia. The patient is without any new focal neurological deficits and denies any recent illnesses. He did report a recent tick bite Allergies Allergy/AdvReac Type Severity Reaction Status Date / Time latex AdvReac Rash Verified 04/23/24 00:08 Home Medications Medication Instructions Recorded Confirmed Type No Known Home Medications 04/22/24 04/22/24 History Patient History Surgical History History of shoulder surgery History of carpal tunnel surgery Family History Father Hypertension Mother Hypertension Social History Smoking Status: Never smoker Hx Alcohol Use: No Hx Substance Use: No Preferred Language: Yakut Communication Ability: Effective Ornithology Teacher Required: No Beliefs That Will Affect Care: None Current Living Situation: Spouse Other Information That Helps Us Care for You: No Feels Safe at Home: Yes Safety Concerns: Feels Safe At This Time Review of Systems Constitutional: Patient denies weight loss, fever, chills, and night sweats Eyes: Patient denies change in vision, tearing, pain, and redness ENT: Patient denies pain, bleeding, rhinorrhea, and dysphagia Cardiovascular: Patient denies chest pain, palpitation, dyspnea at rest, and dyspnea with exertion Respiratory: Patient denies shortness of breath, cough, wheezing, and productive cough GI: Patient denies reflux, pain, constipation, and diarrhea Skin: Patient denies rash, dryness, and itching Allergies/Immune System: Patient denies rhinorrhea, seasonal allergies, reaction to current MEDS, and joint swelling Endocrine: Patient denies weight loss, weight gain, temperature intolerance, and excessive thirst Neurological: All negative unless mentioned in the HPI Physical Exam General Constitutional: Appearance normally developed Head and face: normocephalic and atraumatic Eyes: no ptosis, no anisocoria, and no dysconjugate gaze Respiratory: normal effort Cardiovascular: regular rhythm and regular rate Abdomen: non distended Skin: no rashes, lesions, or ulcers noted Psychiatric: normal judgement and insight, normal mood, and normal affect NEUROLOGIC EXAMINATION: Mental Status:alert, oriented to time, place, person, normal recent memory, normal remote memory, normal attention span, normal concentration, normal language and normal fund of knowledge Cranial Nerves: CN 2 - no visual defect on confrontation and pupils round, equal, reactive to light CN 3, 4, 6 - extra-ocular movements intact and no nystagmus CN 5 - facial sensation intact CN 7 - no facial asymmetry CN 8 - intact hearing CN 9, 10 - palate symmetric, normal gag CN 11 - good shoulder shrug CN 12 - tongue midline MOTOR: Strength was at least antigravity throughout, Pronator drift was absent and There were no abnormal movements SENSATION: intact and symmetric to pinprick, light touch, vibration and joint position GAIT: stable, no ataxia and can perform tandem walking COORDINATION: no ataxia with finger to nose testing and heel to alanis testing REFLEXES: cannot assess over telemedicine NIH Stroke Scale: 1a. Level of Consciousness: alert = 0 1b. LOC Questions: (month, age): both correct = 0 1c. LOC Commands (open and close eyes, make fist and let go using non-paretic hand): obeys both correctly = 0 2. Best Gaze (eyes open and patient follows examiner's finger or face): normal = 0 3. Visual (visual threat or finger counting in each quadrant): no loss = 0 4. Facial Palsy (show teeth, raise eye brows and squeeze eyes shut, or grimace symmetry in a comatose patient): normal = 0 5a. Motor Arm (extend arm (palms down) to 90 degrees and score drift/movement (10 seconds) - Left: no drift = 0 5b. Motor Arm: (extend arm (palms down) to 90 degrees and score drift/movement (10 seconds) - Right: no drift = 0 6a. Motor Leg (elevate leg 30 degrees and score drift/ movement (5 seconds) - Left: no drift = 0 6b. Motor Leg (elevate leg 30 degrees and score drift/ movement (5 seconds) - Right: no drift = 0 7. Limb Ataxia (finger to nose, heel down alanis): absent = 0 8. Sensory (pin prick to face, arm, trunk and leg, compare side to side): normal = 0 9. Best Language: no aphasia = 0 10. Dysarthria (evaluate speech clarity by patient repeating listed words): normal articulation = 0 11. Extinction and Inattention: no neglect = 0 Total: 0 Results & Data Vital Signs (Past 12 Hours) Vital Signs Temp Pulse Resp BP Pulse Ox O2 Del Method 04/23/24 11:04 36.6 C 57 L 18 158/89 H 94 Room Air 04/23/24 07:19 36.5 C 52 L 18 149/83 H 94 Room Air 04/23/24 02:10 36.5 C 49 L 18 159/78 H 93 Room Air Laboratory Results Laboratory Results - last 24 hr 04/22/24 04/22/24 04/22/24 17:03 17:04 17:06 WBC 7.92 RBC 5.54 Hgb 15.5 POC Hgb 16.7 Hct 46.7 POC Hct 49 MCV 84.3 MCH 28.0 MCHC 33.2 RDW Std Deviation 41.9 RDW Coeff of Miguel A 13.5 Plt Count 314 MPV 9.4 Immature Gran % (Auto) 0.4 Neut % (Auto) 66.4 Lymph % (Auto) 20.3 Grady % (Auto) 10.5 Eos % (Auto) 1.9 Baso % (Auto) 0.5 Neut # (Auto) 5.26 Lymph # (Auto) 1.61 Grady # (Auto) 0.83 H Eos # (Auto) 0.15 Baso # (Auto) 0.04 Immature Gran # (Auto) 0.03 PT 10.5 INR 1.0 APTT 29 PTT Ratio 1.1 POC Sodium 139 Sodium 137 POC Potassium 3.9 Potassium 4.0 POC Chloride 100 L Chloride 102 Carbon Dioxide 27 POC Total CO2 25 Anion Gap 8 POC Anion Gap 19.0 POC BUN 17 BUN 17 Creatinine 0.99 POC Creatinine 1.0 Est Cr Clr Drug Dosing 75.1 eGFR 79.94 BUN/Creatinine Ratio 17.2 Glucose 112 H POC Glucose (other) 114 H Estimat Average Glucose Hemoglobin A1c Calcium 9.8 POC Ioniz Calcium Maik 1.24 Magnesium 2.1 Total Bilirubin 0.4 AST 34 ALT 37 Alkaline Phosphatase 66 Troponin I High Sens 16.2 Total Protein 7.4 Albumin 4.6 Globulin 2.8 Albumin/Globulin Ratio 1.6 Triglycerides Cholesterol LDL Cholesterol, Calc VLDL Cholesterol, Calc HDL Cholesterol Cholesterol/HDL Ratio Vitamin B12 TSH 3.345 Anaplasma Smear See Comment Babesia Smear See Comment Babesia microti DNA PCR Lyme Disease Screen Negative 04/22/24 04/23/24 20:40 07:19 WBC 5.74 RBC 5.46 Hgb 15.3 POC Hgb Hct 46.9 POC Hct MCV 85.9 MCH 28.0 MCHC 32.6 RDW Std Deviation 43.5 RDW Coeff of Miguel A 13.8 Plt Count 286 MPV 9.6 Immature Gran % (Auto) 0.2 Neut % (Auto) 61.9 Lymph % (Auto) 23.0 Grady % (Auto) 11.8 Eos % (Auto) 2.4 Baso % (Auto) 0.7 Neut # (Auto) 3.55 Lymph # (Auto) 1.32 Grady # (Auto) 0.68 H Eos # (Auto) 0.14 Baso # (Auto) 0.04 Immature Gran # (Auto) 0.01 PT INR APTT PTT Ratio POC Sodium Sodium 140 POC Potassium Potassium 4.0 POC Chloride Chloride 106 Carbon Dioxide 28 POC Total CO2 Anion Gap 6 POC Anion Gap POC BUN BUN 14 Creatinine 0.87 POC Creatinine Est Cr Clr Drug Dosing 84.4 eGFR 90.54 BUN/Creatinine Ratio 16.1 Glucose 95 POC Glucose (other) Estimat Average Glucose 123 Hemoglobin A1c 5.9 H Calcium 9.4 POC Ioniz Calcium Maik Magnesium Total Bilirubin AST ALT Alkaline Phosphatase Troponin I High Sens Total Protein Albumin Globulin Albumin/Globulin Ratio Triglycerides 179 H Cholesterol 193 LDL Cholesterol, Calc 122 VLDL Cholesterol, Calc 36 H HDL Cholesterol 35 Cholesterol/HDL Ratio 5.5 H Vitamin B12 187 TSH Anaplasma Smear Babesia Smear Babesia microti DNA PCR Pending Lyme Disease Screen Diagnostic Findings Head CT 04/22/24 16:59 CT HEAD: HISTORY: Stroke TECHNIQUE: Noncontrast CT examination of the head is performed. Coronal and sagittal reformats were created. COMPARISON: None FINDINGS: There is no evidence of intracranial hemorrhage, focal mass effect or midline shift. No fluid collection is identified. The ventricular system is midline and symmetric. No evidence of acute major vascular territory infarction. Chronic white matter ischemic changes No calvarial fracture is identified. The paranasal sinuses and mastoids are well aerated. IMPRESSION: No acute intracranial process identified. Electronically signed by Devaughn Eisenberg 04-22-2024 5:40 PM Head CTA 04/22/24 16:59 HISTORY: Stroke TECHNIQUE: CT angiography of the head and the neck was performed. Coronal and sagittal reformats were created. IV CONTRAST: 100 mL of OMNIPAQUE 300 COMPARISON: FINDINGS: CTA HEAD: Stenotic/occlusive disease: Multifocal stenoses of the right MCA M1 segment, moderate in severity. Aneurysm: None Vascular malformation: None CTA NECK: Right carotid: Moderate stenosis of the proximal right cervical ICA just distal to the carotid bifurcation secondary to atherosclerosis Left carotid: No hemodynamically significant stenosis. Vertebrobasilar system: No hemodynamically significant stenosis. Aortic arch and subclavian arteries: No hemodynamically significant stenosis. Nonvascular structures: Unremarkable. Stenosis ranges are derived using NASCET criteria. IMPRESSION: No large vessel occlusion. 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 Moderate stenosis of the proximal right cervical ICA just distal to the carotid bifurcation secondary to atherosclerosis Notification to clinician of alert: Provider Scooter was notified about above findings by phone on April 22, 2024 at 5:31 PM by Devauhgn Eisenberg MD. ACT 112: Positive. There are findings on this exam that require communication between the performing entity and the patient following Patient Test Result Information Act ([place] ACT 112) guidelines Electronically signed by Devaughn Eisenberg 04-22-2024 5:40 PM Neck CTA 04/22/24 16:59 HISTORY: Stroke TECHNIQUE: CT angiography of the head and the neck was performed. Coronal and sagittal reformats were created. IV CONTRAST: 100 mL of OMNIPAQUE 300 COMPARISON: FINDINGS: CTA HEAD: Stenotic/occlusive disease: Multifocal stenoses of the right MCA M1 segment, moderate in severity. Aneurysm: None Vascular malformation: None CTA NECK: Right carotid: Moderate stenosis of the proximal right cervical ICA just distal to the carotid bifurcation secondary to atherosclerosis Left carotid: No hemodynamically significant stenosis. Vertebrobasilar system: No hemodynamically significant stenosis. Aortic arch and subclavian arteries: No hemodynamically significant stenosis. Nonvascular structures: Unremarkable. Stenosis ranges are derived using NASCET criteria. IMPRESSION: No large vessel occlusion. 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 Moderate stenosis of the proximal right cervical ICA just distal to the carotid bifurcation secondary to atherosclerosis Notification to clinician of alert: Provider Scooter was notified about above findings by phone on April 22, 2024 at 5:31 PM by Devaughn Eisenberg MD. ACT 112: Positive. There are findings on this exam that require communication between the performing entity and the patient following Patient Test Result Information Act ([place] ACT 112) guidelines Electronically signed by Devaughn Eisenberg 04-22-2024 5:40 PM Brain MRI 04/22/24 19:14 EXAM: MR brain wo/w con CLINICAL HISTORY: left sided numbness and headache earlier in the day on 04/22. resolved now. r/o stroke. CT head 04/22/24. No previous MRI here. injected 9cc gadavist through existing iv lt arm uneventful at 0015. images 258. INPATIENT TECHNIQUE: Multisequential and multiplanar images of the brain were submitted for review without and with contrast. COMPARISON: None. FINDINGS: The brain shows normal morphology, signal intensity, and volume for age. No focal parenchymal lesions are seen. No pathological enhancement is noted on the postcontrast sequences. No intracranial hemorrhage, mass effect, midline shift, extra-axial collection, or hydrocephalus is identified. Ventricles, sulci, and basal cisterns are symmetric and normal in size and configuration. Diffusion-weighted sequences show no evidence of acute ischemic infarction. Midline structures including the pituitary gland, corpus callosum, pineal region, and brainstem are unremarkable. The craniovertebral junction is within normal limits. No calvarial abnormalities are identified. The paranasal sinuses and mastoid air cells are clear. Orbital structures are unremarkable. Appropriate flow voids are present in the visualized intracranial vessels. IMPRESSION: 1. No acute intracranial pathology, space occupying mass, or pathological enhancement is demonstrated. Electronically signed by Esau Noriega 04-23-2024 01:38 AM Orbit X-Ray 04/22/24 20:09 Exam(s): XR ORBITS EXAM: XR Orbits, 4 or More Views CLINICAL HISTORY: Reason for exam: Metal. TECHNIQUE: Frontal, lateral and oblique views of the orbits. COMPARISON: No relevant prior studies available. FINDINGS: Bones/joints: Unremarkable. No acute fracture. Sinuses: Unremarkable. No air-fluid levels. Soft tissues: Referred body seen in the orbits. No radiopaque foreign body. Dental: Bilateral maxillary dental hardware is seen. IMPRESSION: No radiopaque foreign body in the orbits Electronically signed by: Israel Kilgore MD 04/22/24 22:03 PM Medications Administered Home Medications Medication Instructions Recorded Confirmed Last Taken No Known Home Medications 04/22/24 04/22/24 Unknown Active Medications Generic Name Dose Route Start Last Admin Trade Name Cullen CAPONE Reason Stop Dose Admin Aspirin 81 mg 04/23/24 09:00 04/23/24 08:28 Aspirin 81 Mg Ectab PO 05/23/24 08:59 81 mg QAM AGNIESZKA Administration Atorvastatin Calcium 40 mg 04/23/24 09:00 04/23/24 08:28 Atorvastatin 40 Mg Tab PO 05/23/24 08:59 40 mg QAM AGNIESZKA Administration Cyanocobalamin 500 mcg 04/23/24 09:15 04/23/24 11:16 Cyanocobalamin (B-12) 500 Mcg Tablet PO 05/23/24 09:14 500 mcg QAM AGNIESZKA Administration Ceftriaxone Sodium 2,000 mg in 50 mls @ 100 mls/hr 04/22/24 22:00 04/22/24 22:57 Rocephin IV 04/24/24 21:59 Infused Q24H AGNIESZKA Infusion ECG Additional Comments: BRITTNEYR
--- NOTE | 2024-04-23 13:01 | Discharge Summary ---
Date of Service April 23, 2024 Admission HPI Per Admitting Provider Patient is 73 year old male with no known prior diagnoses, does not follow-up with PCP and does not take any medications presented to ER today with complaint of left facial numbness, left arm and leg numbness that started approximately 3:45pm today. States prior was in normal state of health and was working with bricks to build a fireplace. Denies headache today. Denies any vision changes, extremity weakness, speech changes. Upon arrival to ER symptoms completely resolved. States yesterday had mild headache that self resolved. Reports typically does not get headaches. Reports recurrent tick bites with most recent tick bite approximately 2 weeks ago to right posterior leg. Thinks may have been attached for a day. Removed with soap and swab. Has not noticed any rashes. Has chronic bilateral shoulder pain but denies any changes. Denies fever/chills, diaphoresis, N/V/D/C, dizziness, syncope, vision changes, neck pain, CP, SOB, orthopnea, palpitations, cough, sore throat, rhinorrhea, abdominal pain, e xtremity weakness, extremity edema, rashes, urinary symptoms. Admission Exam Per Admitting Provider General: no distress, WDWN Head: normocephalic, atraumatic Eyes: PERRL, EOM's intact, no nystagmus, conjunctiva non-injected, anicteric ENT: normal inspection external ears, nose, mucous membranes moist Neck: supple, trachea midline, non-tender Lungs: clear, no respiratory distress, no wheezing/rhonchi/rales CV: RRR, no murmur, no JVD, no pretibial edema Abd: normal BS, soft, non-tender Ext: no cyanosis, no calf tenderness, LUE: +kelsey deformity Neuro: A&O x 3, normal affect. Facial sensation is intact and symmetric, face is strong and symmetric, hearing grossly intact, soft palate elevates symmetrically, no dysarthria, shoulder shrug intact, tongue is midline, normal movement, no fasciculations, strength 5/5 throughout bilateral upper and lower extremities, finger to nose intact, rapid alternating movements intact Skin: warm, dry Principal Diagnosis TIA vs. Hypertensive urgency Discharge Exam General: no distress, WDWN Head: normocephalic, atraumatic Eyes: PERRL, EOM's intact ENT: normal inspection external ears, nose, mucous membranes moist Neck: supple,non-tender Lungs: clear, no respiratory distress, no wheezing/rhonchi/rales CV: RRR, no murmur, no JVD, no pretibial edema Abd: normal BS, soft, non-tender Ext: moves extremities Neuro: A&O x 3, normal affect. Speech fluent, no facial asymmetry. strength 5/5 throughout bilateral upper and lower extremities Skin: warm, dry Discharge Data Allergies Allergy/AdvReac Type Severity Reaction Status Date / Time latex AdvReac Rash Verified 04/23/24 00:08 Consultations 04/22/24 19:02 ED Decision to Admit Stat 04/22/24 19:14 Consult Neurology Routine Ordered Studies 04/22/24 16:59 CT angio head w con Stat CT angio neck with con Stat IMPRESSION: No large vessel occlusion. 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 Moderate stenosis of the proximal right cervical ICA just distal to the carotid bifurcation secondary to atherosclerosis CT head/brain wo con Stat IMPRESSION: No acute intracranial process identified. 04/22/24 19:14 MR brain wo/w con Routine IMPRESSION: 1. No acute intracranial pathology, space occupying mass, or pathological enhancement is demonstrated. Hospital Course (1) Stroke-like symptoms: (2) Elevated blood pressure reading: (3) Tick bite: Patient is 73 year old male with no known prior diagnoses, does not follow-up with PCP and does not take any medications presented to ER with complaint of left facial numbness, left arm and leg numbness that started approximately 3:45pm. Symptoms resolved during ER course. Reports last tick bite 2 weeks ago. In ER Patient afebrile, P: 74, BP 195/94, R: 20 pulse ox 100% on room air. Labs grossly unremarkable Repeat vitals with P: 58, BP 169/88 CT head report: No acute intracranial process identified CTA head and neck report: Right carotid: Moderate stenosis of the proximal right cervical ICA just distal to the carotid bifurcation secondary to atherosclerosis Left carotid: No hemodynamically significant stenosis Vertebral basilar system: No hemodynamically significant stenosis Aortic arch and subclavian arteries: No hemodynamically significant stenosis Nonvascular structures: Unremarkable In ER given aspirin 324mg and atorvastatin 80mg po Patient had resolution of left facial, left arm and left leg numbness during ER course and currently is asymptomatic DDx: TIA, CVA, Hypertensive urgency/emergency, Lyme Disease Lyme screen negative. Pt received dose of Rocephin on admission. Tele to monitor for arrhythmias - sinus rhythm Lipid panel - LDL 122, TC 193, TC 179, HDL 35 Hemoglobin A1C - 5.9% - prediabetes - needs outpt follow up TSH 3.3 wnl MRI brain - No acute intracranial pathology, space occupying mass, or pathological enhancement is demonstrated. Echo with bubble study - LV systolic function normal. EF 55 to 60%. Moderate concentric LVH. Grade 1 diastolic dysfunction. Mild mitral regurg. Mild tricuspid regurg. Doppler findings do not suggest Pulmonary hypertension. Injection of contrast documented no interatrial shunt. PT/OT consulted Started aspirin, atorvastatin Patient may have undiagnosed HTN - will DC on lisinopril 2.5 mg daily Neurology consulted - Recommend aspirin 81 mg, Plavix 75 mg, atorvastatin 80 mg for 3 months to be followed by single antiplatelet. Follow-up follow-up final tickborne panel. Risk factor modifications include strict control of his blood pressure, glucose intolerance noted hemoglobin A1c is 5.9. Continue with atorvastatin 80 mg, this could be adjusted after the 3 months. Follow-up with neurology as an outpatient Total Time Total Time Spent Total Time Spent (In Minutes): 40 Discharge Plan Discharge Items Patient Disposition: Home - Self-Care Reason For Visit: TIA Discharge Diagnosis: TIA vs. Hypertensive urgency Activity: Per Instructions section Non-emergency contact: Primary Care Provider and Neurologist Call non-emergency contact if: you have any medication questions and your symptoms worsen Follow-up/Referrals: PCP,NO [Primary Care Provider] - Diet: Heart Healthy Addtl Attending Provider Instructions: Follow up with primary care provider and neurologist. You will be contacted about your appointments. Take aspirin and plavix for 20 days, then take only aspirin. Take atorvastatin 80 mg daily for next 3 months, then your neurologist may decrease the dose. Monitor your blood pressure and blood glucose (sugar) - discuss this with your primary care doctor. Start taking lisinopril daily, as prescribed, to help manage your blood pressure. Pending Studies at Discharge: Yes Studies:: tick-borne panel Stand-Alone Forms: [employer], Smoking Cessation Medications and DC Order Prescriptions: New aspirin 81 mg Tablet,Delayed Release (Dr/Ec) 81 mg PO QAM Qty: 30 0RF cyanocobalamin (vitamin B-12) 500 mcg Tablet 500 mcg PO QAM Qty: 20 0RF atorvastatin 80 mg tablet 80 mg PO HS Qty: 30 0RF clopidogrel [Plavix] 75 mg tablet 75 mg PO DAILY Qty: 20 0RF lisinopril 2.5 mg tablet 2.5 mg PO DAILY Qty: 30 0RF Discharge Orders: Discharge Order (Routine); Ordered 04/23/24 Ordered By: Abram Main Admission Data Admit Date/Time: 04/22/24 19:11 Attending Provider: Abram Main Admit Provider: Art Hunt Primary Care Provider: PCP,NO Other Providers: Art Hunt; Ibeth Gomes; Mario Lozano; Ibeth Friend; Allan Caro; Wilber Sheehan; Hugo Vargas; Wilber Campbell; Maris Gan; Senthil Case; Orville Shepard; Raya Hogan; Benigno Sherman; Nuvia Delgado; Daxa Bethea; Wilber Alford; Cristina Samaniego
[2024-04-23] MEDS ORDERED: STROKE PATIENT DISCHARGE STA (13:24)
[2024-04-23] MEDS: CLOPIDOGREL BISULFATE 75 MG TAB PO ONE (13:49)
--- NOTE | 2024-04-23 13:51 | Pharmacy Report ---
- Date of Service April 23, 2024 - Pharmacy CVA/TIA Medication Review Medications to Prevent Stroke handout has been added to the patients discharge packet. Antiplatelet(s) * Aspirin 81mg po daily Cholesterol * High intensity statin: atorvastatin 40 mg daily DVT Prophylaxis * SCD knee Therapeutic Anticoagulation * No history of Afib/Aflutter noted Type 2 Diabetes * Patient does not have T2DM
[2024-04-25 23:07] LABS: Babesia microti DNA Not Detected (Not Detected)
== END 2024-04-23 15:19 | disposition home or self-care (01) ==
LOC: ED 16:41 → 2S 16:41 → SUATTDRO 19:11 → 2S 21:01